=== PATIENT | female | born 1960 | race Caucasian/White ===

== ENCOUNTER → 2019-01-22 | Outpatient (CLI) | payer BC ==
--- NOTE | 2019-01-23 19:53 | MAM ---
EXAM DESCRIPTION: 3D Screening BILATERAL : Digital Mammography. CLINICAL HISTORY: 58 years Female Screening . No complaints. Dense breasts on prior mammograms. No personal or family history of breast cancer. Menarche 16. Childbirth. Postmenopausal 5+ years. No HRT. Lifetime risk of developing breast cancer (Tyrer-Cuzick model)(%): 6.3. COMPARISON: Prior mammograms not available. No prior reports available. TECHNIQUE: Bilateral CC and MLO projection full-field images, with Panda Implant Displacement digital tomosynthesis mammographic technique. Bilateral 2-D digital full-field images, MLO and CC projections, non-displaced. Bilateral digital 2-D full-field MLO images. Implant displaced. CAD not available for tomosynthesis or 2-D images. FINDINGS: The breast parenchymal density pattern is: Extremely dense breast tissue, which lowers the sensitivity of mammography. No skin thickening or nipple retraction. Mass density associated with the anterior lateral dense fibroglandular tissues in the right breast on the implant displaced images. Approximately 11:00-12:00 position. Small microcalcifications associated with density in the right breast. Coarse microcalcifications associated with the dense left breast tissues. . No new focal, stellate mass or density, focal asymmetry , and no suspicious microcalcifications left breast. IMPRESSION: Focal mass density anterior right breast. BI-RADS CATEGORY: 0 - INCOMPLETE- Need prior mammograms for comparison. FOLLOW-UP: Comparison with prior examination(s) when available. Written communication explaining the results and follow-up will be mailed to the patient and referring care provider. Electronically signed by: Hesham Lawler MD 01/23/2019 7:51 PM CDT
== END ==
LOC: MAMMO 13:49
PROVIDERS: ATTEND Family Medicine
DX: Z12.31 Encounter for screening mammogram for malignant neoplasm of breast (principal)

== ENCOUNTER → 2019-02-05 | Outpatient (CLI) | payer BC ==
--- NOTE | 2019-02-05 11:03 | US ---
EXAM DESCRIPTION: 3D Diagnostic, Right (accession [id number]), Breast,Right (accession [id number]): Ultrasound CLINICAL HISTORY: 58 yearsFemaleABNORMAL MAMMOGRAM mass density right breast COMPARISON: Bilateral screening digital breast tomosynthesis with implant displacement imaging 22 January 2019. TECHNIQUE: Right breast - all images with implant displacement technique: LM projection full-field images, digital tomosynthesis technique. Right breast 2-D digital full-field images. LM projections and magnification LM, CC, and MLO projections. CAD not available. . Transcutaneous scanning of the right breast utilizing bernal-scale and Doppler modes. Scanning performed by the child watch attendant ; observation by Dr. Lawler. FINDINGS: The breast parenchymal density pattern is: Extremely dense breast tissue, which lowers the sensitivity of mammography. No skin thickening or nipple retraction at the 11:00 position of the right breast just anterior to the implant capsule and 2.5 cm inferior to the skin surface, mass density containing calcifications with circumscribed and lobulated margins. Approximately 1.2 cm diameter with punctate micro-calcification. No abnormal microcalcifications. Ultrasound: Scanning of the upper-outer quadrant of the right breast anterior to the implant capsule. Homogeneous hypoechoic oval-shaped mass, wider than tall orientation and minimal posterior midline acoustic enhancement. Focal echogenic structures in the mass most likely calcifications. The mass is vascular. Dimensions are 10.3 x 9.5 mm. Similar-appearing mass slightly inferior and lateral to the larger mass measuring 5.8 x 6.1 mm and not vascular. This mass demonstrates minimal posterior acoustic shadowing with no central echogenicity or vascularity and not vascular. Wider than tall orientation. Third mass slightly more inferior and lateral heterogeneously hypoechoic with smooth circumscribed capsule, and posterior central acoustic enhancement. Also small posterior vascular pedicle. Dimensions are 5.1 x 4.9 mm. No distinct simple cyst, no large calcifications, no parenchymal edema. No overlying skin changes. Implant capsule appears intact where seen. IMPRESSION: BI-RADS CATEGORY: 3 - PROBABLY BENIGN. Management: Short interval (6-month) follow-up diagnostic mammography and tomosynthesis right breast and directed right breast ultrasound.. The FINDINGS and the FOLLOW-UP plan were reviewed in person with the patient after the examination. Written communication explaining the IMPRESSION and FOLLOW-UP will be mailed to the patient and referring care provider. Electronically signed by: Hesham Lawler MD 02/05/2019 11:01 AM CDT
== END ==
LOC: MAMMO 08:38
PROVIDERS: ATTEND Family Medicine
DX: R92.8 Other abnormal and inconclusive findings on diagnostic imaging of breast (principal)
CPT/HCPCS: 76641; 77065; G0279